=== PATIENT | female | born 1975 | race Two or more races ===

== ENCOUNTER 2016-07-27 11:07 | Emergency (ER) | payer MEDICAID ==
[2016-07-27 14:25] LABS: ABSOLUTE NEUTROPHIL COUNT 3.8 K/mm3 (1.8-7.7); BASO # 0.1 K/mm3 (0.0-0.2); BASO % 0.7 % (0.2-1.0); EOS # 0.4 (0.0-0.5); EOS % 5.1 % (0.9-2.9); HEMATOCRIT 39.5 % (37.0-47.0); HEMOGLOBIN 12.4 gm/l (12.0-16.0); IMM NEUT% 0.1 % (0-1); LYMPH # 2.2 (1.0-4.8); MEAN CELL VOLUME 86.4 fl (81.0-99.0); MEAN CORPUSCULAR HEMOGLOBIN 27.1 pg (27.0-31.0); MEAN CORPUSCULAR HGB CONC 31.4 g/dl (33.0-37.0); MEAN PLATELET VOLUME 10.2 fl (7.4-10.4); MONO # 0.4 (0.0-0.8); MONO % 5.9 % (4-12); NEUT % 56.2 % (43-75); PLATELET COUNT 326 K/mm3 (130-400); SPECIFIC GRAVITY 1.025 (1.001-1.030); URINE BILIRUBIN NEGATIVE (NEGATIVE); URINE BLOOD 1+ (NEGATIVE); URINE GLUCOSE (UA) NEGATIVE (NEGATIVE); URINE LEUKOCYTE ESTERASE NEGATIVE (NEGATIVE); URINE NITRITE NEGATIVE (NEGATIVE); URINE PROTEIN NEGATIVE (NEGATIVE); URINE UROBILINOGEN NORMAL (0-1 mg/dl)
[2016-07-27 14:27] LABS: URINE APPEARANCE CLEAR; URINE COLOR YELLOW
[2016-07-27 14:36] LABS: URINE RBC 0-1 /hpf
[2016-07-27 14:37] LABS: URINE BACTERIA RARE; URINE WBC 0-1 /hpf
[2016-07-27] MEDS ORDERED: IBUPROFEN 600 MG TABLET ONE (14:52)
== END 2016-07-27 15:29 | disposition home or self-care (01) ==
LOC: ED 11:07
DX: N93.9 Abnormal uterine and vaginal bleeding, unspecified (principal)
CPT/HCPCS: 85025; 80048; 81001; 99283 ×2; A9270

== ENCOUNTER 2016-07-29 07:49 | Emergency (ER) | payer MEDICAID ==
[2016-07-29] MEDS ORDERED: IOPAMIDOL 300 (61%) 150 ML VIAL IV ONE (07:50)
[2016-07-29] MEDS ORDERED: SODIUM CHLORIDE 0.9% 1,000 ML ONE (09:22)
[2016-07-29] MEDS ORDERED: ONDANSETRON 4 MG/2ML 2 ML VIAL ONE (09:22)
[2016-07-29] MEDS ORDERED: HYDROMORPHONE HCL 1 MG/ML SYRINGE ONE (09:22)
[2016-07-29 09:34] LABS: ABSOLUTE NEUTROPHIL COUNT 9.6 K/mm3 (1.8-7.7); BASO % 0.3 % (0.2-1.0); EOS # 0.2 (0.0-0.5); HEMATOCRIT 39.3 % (37.0-47.0); HEMOGLOBIN 12.8 gm/l (12.0-16.0); IMM NEUT% 0.3 % (0-1); LYMPH # 1.1 (1.0-4.8); LYMPH % 9.2 % (15-45); MEAN CELL VOLUME 85.8 fl (81.0-99.0); MEAN CORPUSCULAR HEMOGLOBIN 27.9 pg (27.0-31.0); MEAN CORPUSCULAR HGB CONC 32.6 g/dl (33.0-37.0); MEAN PLATELET VOLUME 9.7 fl (7.4-10.4); MONO # 0.5 (0.0-0.8); MONO % 4.2 % (4-12); PLATELET COUNT 297 K/mm3 (130-400); RED CELL DISTRIBUTION WIDTH 17.3 % (11.5-14.5)
[2016-07-29 09:46] LABS: ALB/GLOB RATIO 1.2 (>1.0); ALBUMIN 3.7 gm/dL (3.5-5.7); CALCIUM 8.5 mg/dL (8.6-10.3)
--- NOTE | 2016-07-29 11:17 | CT ---
CT ABDOMEN AND PELVIS WITH CONTRAST HISTORY: Low abdominal pain. TECHNIQUE: Following intravenous administration of 125 mL Isovue-300, contiguous axial images were acquired from the lung bases to the ischial tuberosities. Oral contrast was not administered. COMPARISON:None. FINDINGS: LUNG BASES: No gross airspace consolidation or pleural effusion. LIVER: No focal lesion. SPLEEN: No focal lesion. PANCREAS: No focal lesion. ADRENAL GLANDS: No mass effect. KIDNEYS: No focal lesion. No collecting system dilatation. GALLBLADDER: Evidence of cholelithiasis with a 2.2 cm gallstone identified. BOWEL: Decompression of large and small bowel with equivocal wall thickening of the cecum. No abnormal small bowel dilatation. APPENDIX: Normal gas-filled appendix. PELVIC ORGANS: Enlargement of the uterus with heterogeneous hypoattenuation and peripheral enhancement in the region measuring approximately 6.5 x 6 .4 x 6.6 cm there is a cystic component measuring 4.2 x 1.7 x 3.2 cm which could relate to cystic component mass versus fluid within the endometrial canal. No dominant adnexal mass. Prominent adnexal vessels. FREE FLUID: No gross free fluid identified. ABDOMINOPELVIC LYMPH NODES: No abnormally enlarged lymph nodes identified. ABDOMINAL AORTA: Normal caliber. OSSEOUS STRUCTURES: Minor disc degeneration L5-S1. No destructive osseous lesions. IMPRESSION: 1. Heterogeneously enhancing uterine mass lesion measuring 6.6 cm in size versus increased fluid within the endometrial canal. Considerations for further evaluation include ultrasound versus pelvic MRI. Leiomyoma with necrotic change and alternate neoplasm are possible. 2. Cholelithiasis. 3. Nonobstructive appearance of bowel with normal appendix. Equivocal wall thickening of the proximal colon which may be exaggerated by decompression, minor ileocolitis is possible. Findings discussed with Dr. Aragon of the Emergency Medicine clinical service on 07/29/2016 at 1113 hours.
[2016-07-29 12:08] LABS: URINE BILIRUBIN NEGATIVE (NEGATIVE); URINE BLOOD NEGATIVE (NEGATIVE); URINE GLUCOSE (UA) NEGATIVE (NEGATIVE); URINE LEUKOCYTE ESTERASE NEGATIVE (NEGATIVE); URINE NITRITE NEGATIVE (NEGATIVE); URINE PROTEIN NEGATIVE (NEGATIVE); URINE UROBILINOGEN NORMAL (0-1 mg/dl)
[2016-07-29 12:17] LABS: URINE APPEARANCE CLEAR; URINE COLOR YELLOW
== END 2016-07-29 13:40 | disposition home or self-care (01) ==
LOC: ED 07:49
DX: N94.89 Other specified conditions associated with female genital organs and menstrual cycle (principal)
CPT/HCPCS: 84703; 85025; 80053; 81003; 74177; 96375; 99284 ×2; 96374; 96361; J1170; J2405; J7030; Q9967